=== PATIENT | female | born 1960 | race Caucasian/White ===

== ENCOUNTER 2018-05-13 14:34 | Emergency (ER) | payer MEDICAID ==
[~2018-05-13] VITALS: Ht 167.6 cm; Wt 81.6 kg
--- NOTE | 2018-05-13 14:34 | NUR ---
PT BIBA BLS TO ER BED 11
[2018-05-13 14:47] VITALS: BP 147/114
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
[2018-05-13] MEDS ORDERED: KETOROLAC 60 MG/2 ML VIAL IM ONE (15:05)
[2018-05-13] MEDS ORDERED: LORazepam 2 MG/ML VIAL IM ONE (15:05)
--- NOTE | 2018-05-13 15:29 | NUR ---
REPORTING INFORMATION: SHERIFF Jess ATKINSON [phone] CASE # [id number]
--- NOTE | 2018-05-13 15:36 | NUR ---
PATIENT TAKEN TO CT
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
--- NOTE | 2018-05-13 15:46 | NUR ---
PATIENT BACK FROM CT
--- NOTE | 2018-05-13 15:58 | NUR ---
PATIENT ASSISTED IN USING BED ROOT
[2018-05-13] MEDS ORDERED: fentaNYL 0.05 MG/ML VIAL IM ONE (16:20)
--- NOTE | 2018-05-13 16:28 | NUR ---
Patient appears to be resting comfortably in bed. Vital Signs within normal limits. Respirations even and unlabored.
[2018-05-13 17:00] VITALS: BP 141/91
--- NOTE | 2018-05-13 17:00 | NUR ---
Patient discharged with v/s stable. Written and verbal after care instructions given and explained. Patient alert, oriented and verbalized understanding of instructions. Ambulatory with steady gait. All questions addressed prior to discharge. ID band removed. Patient advised to follow up with PMD. Rx of MOTRIN AND TRAMADOL given. Patient educated on indication of medication including possible reaction and side effects. Opportunity to ask questions provided and answered.
== END 2018-05-13 17:00 | disposition home or self-care (01) ==
LOC: MED 14:34
DX: S16.1XXA Strain of muscle, fascia and tendon at neck level, initial encounter (principal); S00.81XA Abrasion of other part of head, initial encounter; Y04.2XXA Assault by strike against or bumped into by another person, initial encounter; Y93.89 Activity, other specified; Y92.89 Other specified places as the place of occurrence of the external cause; Y99.8 Other external cause status
CPT/HCPCS: 70450; 72125; 90471; 90715; 96372; 99284; J1885; J2060; J3010

== ENCOUNTER 2019-06-07 13:10 | Emergency (ER) | payer MEDICAID ==
[~2019-06-07] VITALS: Ht 165.1 cm; Wt 88.5 kg
[2019-06-07 13:59] VITALS: BP 136/107
--- NOTE | 2019-06-07 14:03 | NUR ---
PT TO LOBBY W/ SON, CALM, VSS.
--- NOTE | 2019-06-07 14:20 | NUR ---
APT C/O ANXIETY FOR 3 DAYS W/ CHEST PRESSURE, PT TAKES HYDROXYZINE 50MG BUT HAS NOT HAD FOR 3 DAYS, PT TOOK LATUDA 80MG TODAY. DENIES N/V/D; PATIENT STATES PAIN OF 0/10 AT THIS TIME; VSS; PATIENT POSITIONED FOR COMFORT; HOB ELEVATED; BEDRAILS UP X1; BED DOWN. ER MD MADE AWARE OF PT STATUS.
--- NOTE | 2019-06-07 15:29 | NUR ---
PT TO ER BED 7
[2019-06-07 16:10] VITALS: BP 131/100
--- NOTE | 2019-06-07 16:10 | NUR ---
Patient discharged with v/s stable. Written and verbal after care instructions given and explained. Patient alert, oriented and verbalized understanding of instructions. Ambulatory with steady gait. All questions addressed prior to discharge. ID band removed. Patient advised to follow up with PMD. Rx of Hydroxyzine Hydrochloride given. Patient educated on indication of medication including possible reaction and side effects. Opportunity to ask questions provided and answered.
== END 2019-06-07 16:10 | disposition home or self-care (01) ==
LOC: MED 13:10
DX: F41.9 Anxiety disorder, unspecified (principal); G47.00 Insomnia, unspecified; Z76.0 Encounter for issue of repeat prescription
CPT/HCPCS: 93005; 99284

== ENCOUNTER 2019-08-01 10:53 | Emergency (ER) | payer SELFPAY ==
[~2019-08-01] VITALS: Ht 165.1 cm; Wt 85.3 kg
[2019-08-01 10:55] VITALS: BP 171/116
--- NOTE | 2019-08-01 10:55 | NUR ---
PATIENT AMBULATED TO BED 8
[2019-08-01] MEDS ORDERED: LORazepam 1 MG TAB PO ONE (11:05)
[2019-08-01] MEDS ORDERED: ASPIRIN 325 MG TAB PO ONE (11:05)
--- NOTE | 2019-08-01 11:05 | NUR ---
denise farrar at bedside for ekg
--- NOTE | 2019-08-01 11:06 | NUR ---
dr hankins at bedside
--- NOTE | 2019-08-01 11:09 | NUR ---
xray at bedside
--- NOTE | 2019-08-01 11:15 | NUR ---
lab at bedside
--- NOTE | 2019-08-01 11:16 | NUR ---
C/O ANXIETY WITH CHEST PRESSURE, CONSTANT PAIN 9/10 TO MIDSTERNAL REGION RADIATING LUE X 4 DAYS. PATIENT STATES SHE HASN'T SEEN HER THERAPIST DUE TO CHANGE IN THERAPIST. BP 171/116. AA0X4. VSS. PT NON-DIAPHORETIC, DENIES SOB. BED IS DOWN, LOCKED, BED RAIL X 1. ON MONITOR. HX---HTN, ANXIETY, SCHIZOPHRENIA PARANOIA, GERD RX--?, ATARAX, LATUDA, OMEPRAZOLE
[2019-08-01 11:32] LABS: BASOPHILS # (AUTO) 0.1 K/uL (0.00-0.22); BASOPHILS % (AUTO) 0.9 % (0.0-2.0); EOSINOPHILS # (AUTO) 0.1 K/uL (0-0.4); EOSINOPHILS % (AUTO) 1.6 % (0.0-4.0); HEMATOCRIT 38.1 % (36-48); HEMOGLOBIN 12.3 g/dL (12.0-16.0); LYMPHOCYTES # (AUTO) 2.2 K/uL (2.5-16.5); LYMPHOCYTES % (AUTO) 28.3 % (20.5-51.1); MEAN CORPUSCULAR HEMOGLOBIN 27 pg (27-31); MEAN CORPUSCULAR HGB CONC 32 g/dL (33-37); MEAN CORPUSCULAR VOLUME 84.1 fL (80-94); MONOCYTES # (AUTO) 0.5 K/uL (0.8-1.0); MONOCYTES % (AUTO) 6.6 % (1.7-9.3); NEUTROPHILS # (AUTO) 4.9 K/uL (1.8-7.7); NEUTROPHILS % (AUTO) 62.6 % (42.2-75.2); PLATELET COUNT (AUTO) 337 K/uL (140-450); RED BLOOD CELL COUNT(AUTO) 4.53 MIL/uL (4.20-5.40); RED CELL DISTRIBUTION WIDTH 15.1 % (11.6-13.7); WHITE BLOOD COUNT (AUTO) 7.8 K/uL (4.8-10.8)
[2019-08-01 11:48] LABS: ANION GAP 15.6 (8-16); CARBON DIOXIDE 25.9 mmol/L (21-32); POTASSIUM 3.5 mmol/L (3.5-5.1)
[2019-08-01 11:49] LABS: CREATININE 1.1 mg/dL (0.6-1.3)
[2019-08-01 11:52] LABS: TOTAL BILIRUBIN 0.2 mg/dL (0.0-1.0)
[2019-08-01 11:53] LABS: ALBUMIN 3.5 g/dL (3.4-5.0)
[2019-08-01 12:13] LABS: CREATINE KINASE MB 0.7 ng/mL (0-3.6)
--- NOTE | 2019-08-01 12:56 | NUR ---
Patient discharged with v/s stable. Written and verbal after care instructions given and explained. Patient alert, oriented and verbalized understanding of instructions. Ambulatory with steady gait. All questions addressed prior to discharge. ID band removed. Patient advised to follow up with PMD. Rx of HYDROXYZINE, OMEPRAZOLE & LATUDA given. Patient educated on indication of medication including possible reaction and side effects. Opportunity to ask questions provided and answered.
[2019-08-01 12:57] VITALS: BP 156/100
== END 2019-08-01 12:56 | disposition home or self-care (01) ==
LOC: MED 10:53
DX: R07.89 Other chest pain (principal); F41.9 Anxiety disorder, unspecified; F20.9 Schizophrenia, unspecified; F17.210 Nicotine dependence, cigarettes, uncomplicated; K21.9 Gastro-esophageal reflux disease without esophagitis; Z76.0 Encounter for issue of repeat prescription; Z98.890 Other specified postprocedural states
CPT/HCPCS: 36415; 71045; 80053; 82550; 82553; 83690; 84484; 85025; 99284; Q0092; 93005

== ENCOUNTER 2020-01-01 08:32 | Emergency (ER) | payer MEDICAID ==
[~2020-01-01] VITALS: Ht 172.7 cm; Wt 86.2 kg
[2020-01-01 08:44] VITALS: BP 137/89
--- NOTE | 2020-01-01 08:49 | NUR ---
Note undone in EDM - 01/01/20 at 0921 by [facility] [place] 59 YO F C/O FLU-LIKE SYMPTOMS X 3 DAYS. +FEVER 100F, +THROAT PAIN 9/10, EAR PAIN L>R, RUNNY NOSE, PRODUCTIVE COUGH, CHEST PAIN 6/10 DESCRIBED TIGHTNESS. PT DENIES ANY N/V/D. PT TOOK IBUPROFEN 800MG AT 6:40AM. IN ER, VSS. NORMAL RATE REGULAR RHYTHM, CLEAR BREATH SOUNDS ON ALL QUADRANTS, ABDOMEN SOFT AND NON-TENDER. PT POSITIONED COMFORTABLY IN BED. ER MD MADE AWARE OF PT STATUS. PMH: HTN, SCHIZOPHRENIA MEDS: HYDROXYZINE, LATUDA NKA NO FLU SHOT
[2020-01-01 09:14] VITALS: BP 137/89
--- NOTE | 2020-01-01 09:14 | NUR ---
Patient discharged with v/s stable. Written and verbal after care instructions given and explained. Patient alert, oriented and verbalized understanding of instructions. Ambulatory with steady gait. All questions addressed prior to discharge. ID band removed. Patient advised to follow up with PMD. Rx of TYLENOL, TAMIFLU, SUDAFED given. Patient educated on indication of medication including possible reaction and side effects. Opportunity to ask questions provided and answered.
--- NOTE | 2020-01-01 09:14 | NUR ---
Note kikoone in EDM - 01/01/20 at 0921 by [facility] [place] Patient discharged with v/s stable. Written and verbal after care instructions given and explained. Patient alert, oriented and verbalized understanding of instructions. Ambulatory with crutches. All questions addressed prior to discharge. ID band removed. Patient advised to follow up with PMD. Rx of NORCO given. Patient educated on indication of medication including possible reaction and side effects. Opportunity to ask questions provided and answered.
== END 2020-01-01 09:14 | disposition home or self-care (01) ==
LOC: MED 08:32
DX: R05 Cough (principal); R50.9 Fever, unspecified; R09.81 Nasal congestion; J02.9 Acute pharyngitis, unspecified; K21.9 Gastro-esophageal reflux disease without esophagitis; I10 Essential (primary) hypertension; F20.9 Schizophrenia, unspecified
CPT/HCPCS: 99283

== ENCOUNTER 2020-09-11 14:30 | Emergency (ER) | payer MEDICAID ==
[~2020-09-11] VITALS: Ht 165.1 cm; Wt 73.2 kg
[2020-09-11 14:40] VITALS: BP 153/108
--- NOTE | 2020-09-11 14:46 | NUR ---
BIB SELF FOR MED CLEARANCE. C/O FEVER ON & OFF FRI, SAT LAST WEEK, COUGH ONLY IN THE MORNING S/P ALLERGY, RASH S/P ALLERGRY ONLY ON SAT 09/09/20. TEMP 99.4, P86, R 20, O2 SAT 95%,BP 153/108 AT THIS TIME. MED HX: HTN
--- NOTE | 2020-09-11 14:46 | NUR ---
Note undone in EDM - 09/11/20 at 1457 by [email or web address] BIB SELF FOR MED CLEARANCE FOR RETURNING TO WORK. C/O FEVER ON & OFF FRI, SAT LAST WEEK, COUGH OMLY IN THE MORNING S/P ALLERGY, RASH S/P ALLERGRY ONLY ON SAT 09/09/20. TEMP 99.4, P86, R 20, O2 SAT 95%,BP 153/108 AT THIS TIME. MED HX: HTN
--- NOTE | 2020-09-11 14:55 | NUR ---
COVID CED SWAB SENT TO LAB.
[2020-09-11 15:49] VITALS: BP 153/108
--- NOTE | 2020-09-11 15:49 | NUR ---
Patient discharged with v/s stable. Written and verbal after care instructions given and explained. Patient alert, oriented and verbalized understanding of instructions. Ambulatory with steady gait. All questions addressed prior to discharge. ID band removed. Patient advised to follow up with PMD. Rx of Hydrocortisone 1% topical cream and Benadryl 25mg given. Patient educated on indication of medication including possible reaction and side effects. Opportunity to ask questions provided and answered.
== END 2020-09-11 15:49 | disposition home or self-care (01) ==
LOC: MED 14:30
DX: R50.9 Fever, unspecified (principal); R05 Cough; K21.9 Gastro-esophageal reflux disease without esophagitis; I10 Essential (primary) hypertension; Z02.89 Encounter for other administrative examinations
CPT/HCPCS: 99283

== ENCOUNTER 2020-10-26 01:36 | Emergency (ER) | payer MEDICAID ==
[~2020-10-26] VITALS: Ht 165.1 cm; Wt 72.6 kg
[2020-10-26 01:45] VITALS: BP 153/90
--- NOTE | 2020-10-26 01:45 | NUR ---
TO TENT # 01 AMBULATORY
--- NOTE | 2020-10-26 02:00 | NUR ---
SEEN AND EXAMINED BY RAHEEM,WITH ORDERS,CARRIED OUT.
[2020-10-26] MEDS ORDERED: KETOROLAC 60 MG/2 ML VIAL IM ONE (02:05)
--- NOTE | 2020-10-26 02:05 | NUR ---
MEDICATED PER ERMDS ORDER,PATIENT TOLERATED WELL.
--- NOTE | 2020-10-26 02:10 | NUR ---
SWAB DONE AND SENT TO LAB
[2020-10-26 02:30] VITALS: BP 153/90
== END 2020-10-26 02:30 | disposition home or self-care (01) ==
LOC: MED 01:36
DX: R50.9 Fever, unspecified (principal); Z20.828 Contact with and (suspected) exposure to other viral communicable diseases; K21.9 Gastro-esophageal reflux disease without esophagitis; I10 Essential (primary) hypertension; Z98.890 Other specified postprocedural states
CPT/HCPCS: 96372; 99283; J1885; U0003

== ENCOUNTER 2021-02-16 11:45 | Inpatient (IN) | payer MEDICAID, SELFPAY ==
[~2021-02-16] VITALS: Ht 165.1 cm; Wt 63.0 kg
[~2021-02-16 11:45] MED LIST: GABA300C PO; HYDR25CA1 PO; OMEP20TC10 PO; TRAZ-343 PO
--- NOTE | 2021-02-16 11:46 | NUR ---
TO ED 11 VIA EMS GURNEY.
[2021-02-16 11:51] VITALS: BP 172/94
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
--- NOTE | 2021-02-16 11:57 | NUR ---
DR SMART AT BEDSIDE
[2021-02-16] MEDS ORDERED: fentaNYL citrate 0.05 MG/ML VIAL IVP ONE (12:05)
--- NOTE | 2021-02-16 12:12 | NUR ---
LAB AT BEDSIDE FOR BLOOD DRASW AND EMT AT BEDSIDE FOR EKG
[2021-02-16 12:22] LABS: BASOPHILS # (AUTO) 0.1 K/uL (0.00-0.22); BASOPHILS % (AUTO) 0.7 % (0.0-2.0); EOSINOPHILS # (AUTO) 0.1 K/uL (0-0.4); EOSINOPHILS % (AUTO) 0.9 % (0.0-4.0); HEMATOCRIT 37.8 % (36-48); HEMOGLOBIN 12.5 g/dL (12.0-16.0); LYMPHOCYTES % (AUTO) 11.4 % (20.5-51.1); MEAN CORPUSCULAR HEMOGLOBIN 28 pg (27-31); MEAN CORPUSCULAR HGB CONC 33 g/dL (33-37); MEAN CORPUSCULAR VOLUME 85.2 fL (80-94); MONOCYTES # (AUTO) 0.4 K/uL (0.8-1.0); MONOCYTES % (AUTO) 4.8 % (1.7-9.3); NEUTROPHILS # (AUTO) 7.2 K/uL (1.8-7.7); NEUTROPHILS % (AUTO) 82.2 % (42.2-75.2); PLATELET COUNT (AUTO) 280 K/uL (140-450); RED BLOOD CELL COUNT(AUTO) 4.43 MIL/uL (4.20-5.40); RED CELL DISTRIBUTION WIDTH 15.1 % (11.6-13.7); WHITE BLOOD COUNT (AUTO) 8.7 K/uL (4.8-10.8)
--- NOTE | 2021-02-16 12:22 | NUR ---
PT TAKEN TO CT VIA CESAR
--- NOTE | 2021-02-16 12:34 | NUR ---
PT BACK FROM CT AND CONNECTED TO MONITOR
[2021-02-16 12:36] LABS: ALBUMIN 3.9 g/dL (3.4-5.0); ANION GAP 9.8 (8-16); CARBON DIOXIDE 27.1 mmol/L (21-32); CREATININE 0.8 mg/dL (0.6-1.3); POTASSIUM 3.9 mmol/L (3.5-5.1); TOTAL BILIRUBIN 0.5 mg/dL (0.0-1.0)
--- NOTE | 2021-02-16 12:41 | NUR ---
PT VOMITED 300ML- YELLOW NO BLOOD. PT GIVEN NEW EMESIS BAG AND CLEAN BLANKET. PT C/O 10/ PAIN STILL AND REQUESTING MORE PAIN MEDS. DR SMART MADE AWARE
[2021-02-16] MEDS ORDERED: MORPHINE SULFATE 4 MG/ML SYR IVP ONE (12:45)
[2021-02-16] MEDS ORDERED: ONDANSETRON 4 MG/2 ML VIAL IVP ONE (12:45)
[2021-02-16 12:46] LABS: PROTHROMBIN TIME 10.1 secs (10.8-13.4)
[2021-02-16] MEDS ORDERED: ONDANSETRON 4 MG/2 ML VIAL IM/IVP PRN (15:05)
[2021-02-16] MEDS ORDERED: MORPHINE SULFATE 2 MG/ML SYR IVP PRN (15:05)
[2021-02-16] MEDS ORDERED: KETOROLAC 15 MG/ML VIAL IVP PRN (15:05)
[2021-02-16] MEDS ORDERED: ACETAMINOPHEN 325 MG TAB PO PRN (15:05)
[2021-02-16] MEDS ORDERED: POTASSIUM CHLORIDE 10 MEQ TABER PO PRN (15:05)
[2021-02-16] MEDS ORDERED: DOCUSATE SODIUM 100 MG GELCAP PO PRN (15:05)
[2021-02-16] MEDS ORDERED: SODIUM PHOS / POTASSIUM PHOS 1 PKT PDR PO PRN (15:05)
[2021-02-16] MEDS ORDERED: MAGNESIUM OXIDE 400 MG TAB PO PRN (15:05)
[2021-02-16] MEDS ORDERED: hydrALAZINE 10 MG TAB PO PRN (15:20)
[2021-02-16] MEDS ORDERED: traZODone 50 MG TAB PO PRN (15:20)
--- NOTE | 2021-02-16 15:20 | NUR ---
Patient will be admitted to care of DR CHAPMAN. Admited to TELE. Will go to room 121-B. Belongings list completed. Report to ABNER SABA.
[2021-02-16 15:31] LABS: MAGNESIUM 1.9 mg/dL (1.8-2.4); PHOSPHORUS 3.5 mg/dL (2.5-4.9)
--- NOTE | 2021-02-16 15:45 | NUR ---
REC'D PT FROM E.[facility]. NIKI, RA. LUNGS CLEAR, ABD SOFT, NON-NON TENDER L.HAND 22G SL, A/Ox4 MALAYSIAN SPEAKER, C/O MILD HEADACHE. ICE PACK PROVIDE FOR PAIN. WILL CONTINUE TO MONITOR, NO SIGN OF EDEMA. SKIN INTACT.
--- NOTE | 2021-02-16 15:47 | NUR ---
PT TAKEN TO TELEMETRY 121B BY CESAR. REPORT GIVEN TO ABNER SABA. TRANSFER OF CARE AT THIS TIME
[2021-02-16] MEDS: NACL 0.9% 1,000 ML IV SCH (16:00)
--- NOTE | 2021-02-16 16:50 | NUR ---
COLLECTED MRSA SPECIMEN, L/R NARES ,PT TOLERATED PROCEDURE WELL. SPECIMEN SENT TO LAB FOR PROCESSING
--- NOTE | 2021-02-16 18:20 | NUR ---
PT GIVEN ICE BAGS FOR HEADACHE, PLACED ON BACK ON NECK.
--- NOTE | 2021-02-16 19:21 | NUR ---
ENDORSED PT FOR CONTINUITY OF CARE. PT STABLE RA CALL LIGHT WITHIN REACH. NO SIGN OF DISTRESS
--- NOTE | 2021-02-16 19:22 | NUR ---
RECEIVED TRANSFER OF CARE REPORT FROM AM RN FOR CONTINUATION OF CARE. PT FOUND ASLEEP RESTING IN BED. PT HAS VISIBLE EQUAL RISE AND FALL UPON RESPIRATION. PT HAS NO SIGNS OF DISTRESS. BED LOCKED IN LOWEST POSITION WITH 2 SIDE RAILS UP FOR SAFETY AND CALL LIGHT WITHIN REACH.
[2021-02-16 20:00] VITALS: BP 161/89
[2021-02-16] MEDS: APAP/BUTAL/CAFF 325/50/40 MG 1 TAB PO PRN (20:03)
--- NOTE | 2021-02-16 20:06 | NUR ---
C/O HEADACHE, COLD PACK GIVE, AND FIORICET PO GIVEN PRN HEADACHE ORDERED, WILL CONTINUE TO MONITOR, CALL LIGHT WITHIN REACH.
--- NOTE | 2021-02-16 21:37 | NUR ---
PT FOUND ASLEEP RESTING IN BED. PT HAS VISIBLE EQUAL RISE AND FALL UPON RESPIRATION. NO DISTRESS IS NOTED. BED IS LOCKED IN LOWEST POSITION WITH 2 SIDE RAILS UP FOR SAFETY AND CALL LIGHT WITHIN REACH. WILL CONTINUE TO MONITOR.
--- NOTE | 2021-02-16 22:31 | NUR ---
22 GAUGE IV INSERTED IN LEFT HAND.
[2021-02-17] VITALS: BP 152/98
[2021-02-17 01:03] LABS: BARBITURATE, URINE POSITIVE ng/ml (NEG <=200); BENZODIAZEPINE, URINE NEGATIVE ng/mL (NEG <=200); CANNABINOID, URINE NEGATIVE ng/mL (NEG <=50); COCAINE, URINE NEGATIVE ng/mL (NEG <=300); OPIATE, URINE POSITIVE ng/mL (NEG <=2000); PHENCYCLIDINE SCREEN,URINE NEGATIVE ng/mL (NEG <=25)
--- NOTE | 2021-02-17 01:48 | NUR ---
PT FOUND ASLEEP RESTING IN BED. PT HAS VISIBLE EQUAL RISE AND FALL UPON RESPIRATION. NO DISTRESS NOTED. BED LOCKED IN LOWEST POSITION WITH 2 SIDE RAILS UP FOR SAFETY AND CALL LIGHT WITHIN REACH. WILL CONTINUE TO MONITOR.
--- NOTE | 2021-02-17 03:57 | NUR ---
PT FOUND AWAKE RESTING IN BED. PT STATES NO PAIN, NO DISTRESS, AND NO MEDICAL COMPLAINTS. PT HAS VISIBLE EQUAL RISE AND FALL UPON RESPIRATION. BED LOCKED IN LOWEST POSITION WITH 2 SIDE RAILS UP FOR SAFETY AND CALL LIGHT WITHIN REACH. WILL CONTINUE TO MONITOR.
[2021-02-17 04:00] VITALS: BP 119/74
[2021-02-17 06:08] LABS: ANION GAP 9.8 (8-16); CREATININE 0.9 mg/dL (0.6-1.3); POTASSIUM 3.8 mmol/L (3.5-5.1)
[2021-02-17 06:20] LABS: BASOPHILS % (AUTO) 0.3 % (0.0-2.0); EOSINOPHILS # (AUTO) 0.2 K/uL (0-0.4); EOSINOPHILS % (AUTO) 2.3 % (0.0-4.0); HEMATOCRIT 36.7 % (36-48); HEMOGLOBIN 12.1 g/dL (12.0-16.0); LYMPHOCYTES # (AUTO) 2.4 K/uL (2.5-16.5); LYMPHOCYTES % (AUTO) 30.9 % (20.5-51.1); MEAN CORPUSCULAR HEMOGLOBIN 28 pg (27-31); MEAN CORPUSCULAR HGB CONC 33 g/dL (33-37); MEAN CORPUSCULAR VOLUME 84.7 fL (80-94); MONOCYTES # (AUTO) 0.6 K/uL (0.8-1.0); MONOCYTES % (AUTO) 8.2 % (1.7-9.3); NEUTROPHILS # (AUTO) 4.6 K/uL (1.8-7.7); NEUTROPHILS % (AUTO) 58.3 % (42.2-75.2); PLATELET COUNT (AUTO) 258 K/uL (140-450); RED BLOOD CELL COUNT(AUTO) 4.33 MIL/uL (4.20-5.40); RED CELL DISTRIBUTION WIDTH 15.3 % (11.6-13.7); WHITE BLOOD COUNT (AUTO) 7.8 K/uL (4.8-10.8)
--- NOTE | 2021-02-17 07:17 | NUR ---
TRANSFER OF CARE REPORT PROVIDED TO NISA LEVINE.
--- NOTE | 2021-02-17 07:20 | NUR ---
RECEIVED PATIENT FROM NIGHT NURSE. PATIENT IN BED AWAKE AND ALERT. RESP EVEN AND UNLABORED ON ROOM AIR. DENIED OF PAIN AT THIS TIME. LH 22G INFUSING NS @ 40ML/HR. PLAN OF CARE DISCUSSED. PATIENT VERBALIZED UNDERSTANDING. CALL LIGHT WITHIN REACH. WILL CONTINUE TO MONITOR.
[2021-02-17 08:00] VITALS: BP 144/85
[2021-02-17] MEDS: ECOTRIN 81 MG TABEC PO SCH (08:52)
[2021-02-17] MEDS: GABAPENTIN 300 MG CAP PO SCH (08:52)
[2021-02-17] MEDS: FAMOTIDINE 20 MG TAB PO SCH (08:53)
[2021-02-17] MEDS: hydroCHLOROthiazide 25 MG TAB PO SCH (08:53)
[2021-02-17] MEDS: lisinopriL 10 MG TAB PO SCH (08:53)
[2021-02-17] MEDS ORDERED: carvediloL 3.125 MG TAB PO SCH (09:00)
[2021-02-17] MEDS ORDERED: lisinopriL 10 MG TAB PO SCH (09:00)
--- NOTE | 2021-02-17 09:02 | NUR ---
PATIENT IN BED EATING BREAKFAST. RESP EVEN AND UNLABORED ON ROOM AIR. DENIED OF PAIN AT THIS TIME. MORNING ROUTINE MEDICATIONS GIVEN. PATIENT TOLERATED WELL. DENIED OF ANY MIGRAINE AT THIS TIME AND WILL CALL NURSING NEEDED. RH 22G INFUSING WELL. PATIENT AMBULATORY WITH STEADY GAIT. ABLE TO MAKE NEEDS KNOWN. CALL LIGHT WITHIN REACH. WILL CONTINUE TO MONITOR.
--- NOTE | 2021-02-17 09:35 | NUR ---
PATIENT HAS BEEN SCREENED AND CATEGORIZED LOW NUTRITION RISK. PATIENT WILL BE SEEN WITHIN 7 DAYS OF ADMISSION. 02/23/[address]
[2021-02-17 12:00] VITALS: BP 119/79
--- NOTE | 2021-02-17 12:25 | NUR ---
PATIENT SITTING BY BEDSIDE EATING LUNCH. RESP EVEN AND UNLABORED ON ROOM AIR. DENIED OF PAIN AT THIS TIME. PATIENT IN GOOD SPIRIT. ABLE TO MAKE NEEDS KNOWN. CALL LIGHT WITHIN REACH. WILL CONTINUE TO MONITOR.
--- NOTE | 2021-02-17 14:15 | NUR ---
PATIENT IN BED SLEEPING, CHEST NOTED RISING. NO NOTED DISTRESS AT THIS TIME. CALL LIGHT WITHIN REACH. WILL CONTINUE TO MONITOR.
--- NOTE | 2021-02-17 15:47 | NUR ---
RECEIVED REPORT FROM NURSE VALLADARES FOR CONTINUITY OF CARE. PT HAS LH22G INFUSING NS AT 40 ML/H.
--- NOTE | 2021-02-17 15:47 | NUR ---
ENDORSED PATIENT TO ABNER VIZCARRA FOR CONTINUITY OF CARE. PATIENT IN STABLE CONDITION.
[2021-02-17] MEDS: NACL 0.9% 1,000 ML IV SCH (15:50)
--- NOTE | 2021-02-17 15:52 | NUR ---
ADMINISTERED SCHEDULED FLUIDS, MEDICATION EDUCATION PROVIDED. PT TOLERATED WELL. PT IS STABLE, NO SIGNS OF DISTRESS NOTED. CALL LIGHT WITHIN REACH, WILL CONTINUE TO MONITOR.
[2021-02-17 16:00] VITALS: BP 124/89
--- NOTE | 2021-02-17 17:56 | NUR ---
ROUNDING ON PT, PT ASLEEP BUT WOKE UP WHEN RN ENTERED ROOM. ALL NEEDS MET, PT IS STABLE, WILL CONTINUE TO MONITOR
--- NOTE | 2021-02-17 19:10 | NUR ---
ENDORSE PT TO NIGHT NURSE FOR CONTINUITY OF CARE
--- NOTE | 2021-02-17 19:11 | NUR ---
RECEIVED BEDSIDE ENDORSEMENT FROM AM SHIFT RN. PT IS ALERT, AWAKE ORIENTED X 4, ON ROOM AIR, DENIES PAIN, KEPT COMFORTABLE, SAFETY MEASURES IN PLACE, IVF INFUSING, PLAN OF CARE DISCUSSED, CALL LIGHT WITHIN REACH.
[2021-02-17 20:00] VITALS: BP 121/76
[2021-02-17] MEDS: carvediloL 3.125 MG TAB PO SCH (20:32)
--- NOTE | 2021-02-17 20:35 | NUR ---
PT IS AWAKE AND WATCHING TV, DUE MEDS GIVEN ORDERED, TOLERATED WELL, KEPT COMFORTABLE, CALL LIGHT WITHIN REACH.
--- NOTE | 2021-02-17 22:45 | NUR ---
PT IS RESTING, RESPIRATION EVEN AND UNLABORED, CALL LIGHT WITHIN REACH.
[2021-02-18] VITALS: BP 147/79
--- NOTE | 2021-02-18 00:05 | NUR ---
V/S TAKEN AND RECORDED.
--- NOTE | 2021-02-18 02:08 | NUR ---
PT ASLEEP, RESPIRATION EVEN AND UNLABORED, CHEST RISE NOTED. CALL LIGHT WITHIN REACH.
[2021-02-18 04:00] VITALS: BP 118/76
[2021-02-18 05:57] LABS: BASOPHILS # (AUTO) 0.1 K/uL (0.00-0.22); BASOPHILS % (AUTO) 0.7 % (0.0-2.0); EOSINOPHILS # (AUTO) 0.2 K/uL (0-0.4); EOSINOPHILS % (AUTO) 1.9 % (0.0-4.0); HEMATOCRIT 36.5 % (36-48); HEMOGLOBIN 12.2 g/dL (12.0-16.0); LYMPHOCYTES # (AUTO) 2.3 K/uL (2.5-16.5); LYMPHOCYTES % (AUTO) 28.1 % (20.5-51.1); MEAN CORPUSCULAR HEMOGLOBIN 29 pg (27-31); MEAN CORPUSCULAR HGB CONC 33 g/dL (33-37); MEAN CORPUSCULAR VOLUME 85.8 fL (80-94); MONOCYTES # (AUTO) 0.7 K/uL (0.8-1.0); MONOCYTES % (AUTO) 8.6 % (1.7-9.3); NEUTROPHILS # (AUTO) 4.9 K/uL (1.8-7.7); NEUTROPHILS % (AUTO) 60.7 % (42.2-75.2); PLATELET COUNT (AUTO) 279 K/uL (140-450); RED BLOOD CELL COUNT(AUTO) 4.26 MIL/uL (4.20-5.40); RED CELL DISTRIBUTION WIDTH 15.1 % (11.6-13.7); WHITE BLOOD COUNT (AUTO) 8.1 K/uL (4.8-10.8)
[2021-02-18 06:00] LABS: ANION GAP 10.9 (8-16); CARBON DIOXIDE 27.1 mmol/L (21-32); CREATININE 0.9 mg/dL (0.6-1.3)
--- NOTE | 2021-02-18 06:42 | NUR ---
V/S TAKEN, FALGUNI PAIN, CALL LIGHT WITHIN REACH. Addendum: 02/18/21 at 0644 by Kameron Araiza RN V/S TAKEN AT 0400 NOT 0658
--- NOTE | 2021-02-18 06:44 | NUR ---
NO ACUTE CHANGES OVERNIGHT, NO DISTRESS, NO SOB, ALL NEEDS ATTENDED, KEPT COMFORTABLE, CALL LIGHT WITHIN REACH.
--- NOTE | 2021-02-18 07:24 | NUR ---
PT IS STABLE, BEDSIDE ENDORSEMENT GIVEN TO AM SHIFT RN FOR CONTINUITY OF CARE.
--- NOTE | 2021-02-18 07:28 | NUR ---
RECEIVED REPORT FROM NIGHT NURSE PATIENT IS AAOX4 ON ROOM AIR, AMBULATORY,LATEST BOWEL MOVEMENT TODAY,SKIN INTACT, IV INTACT ON LEFT HAND, SAFETY MEASURES IN PLACE AND CALL LIGHT WITHIN REACH. WILL CONTINUE TO MONITOR.
[2021-02-18] MEDS: APAP/BUTAL/CAFF 325/50/40 MG 1 TAB PO PRN (07:53)
--- NOTE | 2021-02-18 07:53 | NUR ---
PATIENT COMPLAIN HEADACHE 02/17 CHECK VITAL SIGNS BP 129/74 AR 59 . GAVE PAIN MEDICATION FIORICET 325/50/40 MG. PT TOLERATED WELL.
[2021-02-18 08:00] VITALS: BP 161/89
[2021-02-18] MEDS: ECOTRIN 81 MG TABEC PO SCH (08:28)
[2021-02-18] MEDS: GABAPENTIN 300 MG CAP PO SCH (08:29)
[2021-02-18] MEDS: carvediloL 3.125 MG TAB PO SCH (08:29)
[2021-02-18] MEDS: lisinopriL 10 MG TAB PO SCH (08:29)
[2021-02-18] MEDS: hydroCHLOROthiazide 25 MG TAB PO SCH (08:30)
[2021-02-18] MEDS: FAMOTIDINE 20 MG TAB PO SCH (08:30)
--- NOTE | 2021-02-18 08:32 | NUR ---
MEDICATION DUE GIVEN CHECK VITAL SIGN BP 161/89 WA 59 PT IS STABLE AND NO DISTRESS NOTED.
[2021-02-18] MEDS ORDERED: carvediloL 3.125 MG TAB PO SCH (09:00)
--- NOTE | 2021-02-18 10:37 | NUR ---
PATIENT FEELS BETTER AND DENIES ANY HEADACHE
[2021-02-18 12:00] VITALS: BP 125/68
--- NOTE | 2021-02-18 12:13 | NUR ---
MADE ROUND, PT RESTING AND CHECK VITAL SIGNS BP 125/68 WV 57 NO DISTRESS NOTED AND DENIES PAIN.
[2021-02-18] MEDS ORDERED: LISI20TA29 PO ×2 (15:00→15:48)
[2021-02-18] MEDS ORDERED: ASPI-1856 PO ×2 (15:00→15:48)
[2021-02-18] MEDS ORDERED: HYDR25TA32 PO ×2 (15:00→15:48)
[2021-02-18] MEDS ORDERED: CARV3.122 PO ×2 (15:00→15:48)
[2021-02-18] MEDS: NACL 0.9% 1,000 ML IV SCH (15:05)
--- NOTE | 2021-02-18 16:25 | NUR ---
DISCHARGED INSTRUCTIONS GIVEN TO PATIENT ON THE BEDSIDE. INSTRUCTED TO CONTINUE MEDICATIONS AND TO FOLLOW UP WITH PCP IN 3-5 DAYS AND TO FOLLOW UP WITH ACUTE SPECIALIST. INSTRUCTED PATIENT TO SEEK MEDICAL HELP INCASE OF EMERGENCIES. INSTRUCTED TO BLOOD PRESSURE AND TO TAKE SOME REST TO RELIEVE STRESS AND HEADACHE. REMOVED TELEMONITOR AND RETURNED TO SCRAP CARRIER, IV COMPLETE AND NO BLEEDING, REMOVED ID BANDS, CHANGED PT TO HER OWN CLOTHES, PT TOOK ALL HER BELONGINGS AND ESCORTED PATIENT TO FRONT LOBBY VIA WHEELCHAIR.PT IS DISCHARGE TO HOME PT IS STABLE AND NO DISTRESS NOTED AND DENIES PAIN.
== END 2021-02-18 16:25 | disposition home or self-care (01) | DRG 199 ==
LOC: MED 11:45 → MTU 14:58
PROVIDERS: ADMIT Hospitalist; ATTEND Hospitalist
DX: I16.0 Hypertensive urgency (principal); E87.1 Hypo-osmolality and hyponatremia; K21.9 Gastro-esophageal reflux disease without esophagitis; I10 Essential (primary) hypertension; R51.9 Headache, unspecified; I35.0 Nonrheumatic aortic (valve) stenosis; M47.812 Spondylosis without myelopathy or radiculopathy, cervical region; Z86.73 Personal history of transient ischemic attack (TIA), and cerebral infarction without residual deficits; Z98.51 Tubal ligation status; Z87.891 Personal history of nicotine dependence
CPT/HCPCS: 36415; 70450; 72125; 80048; 80053; 80305; 83735; 84100; 84484; 85025; 85610; 85730; 87081; 93005; 96374; 96375; 99285; J2270; J2405; J3010; J7030

== ENCOUNTER 2021-05-29 14:30 | Emergency (ER) | payer MEDICAID, SELFPAY ==
[~2021-05-29] VITALS: Ht 165.1 cm; Wt 77.6 kg
[~2021-05-29 14:30] MED LIST changes: +ASPI-1856 PO; +CARV3.122 PO; -GABA300C PO; -HYDR25CA1 PO; +HYDR25TA32 PO; +LISI20TA29 PO; -TRAZ-343 PO
[2021-05-29 14:31] VITALS: BP 128/92
--- NOTE | 2021-05-29 15:30 | NUR ---
NO NURSING INTERVENTIONS PROVIDED. PT SEEN AND D/C BY DR REDDY
[2021-05-29 15:35] VITALS: BP 128/92
--- NOTE | 2021-05-29 15:47 | NUR ---
Patient discharged with v/s stable. Written and verbal after care instructions given and explained. Patient verbalized understanding. Ambulatory with steady gait. All questions addressed prior to discharge. Advised to follow up with PMD. PT GIVEN WORK CLEARANCE NOTE TO RETURN TO WORK TOMORROW.
== END 2021-05-29 15:47 | disposition home or self-care (01) ==
LOC: MED 14:30
DX: Z02.89 Encounter for other administrative examinations (principal); K21.9 Gastro-esophageal reflux disease without esophagitis; I10 Essential (primary) hypertension; Z79.899 Other long term (current) drug therapy; V89.2XXA Person injured in unspecified motor-vehicle accident, traffic, initial encounter; Y93.89 Activity, other specified; Y92.89 Other specified places as the place of occurrence of the external cause; Y99.8 Other external cause status
CPT/HCPCS: 99281

== ENCOUNTER 2021-11-17 14:11 | Emergency (ER) | payer MEDICAID ==
[~2021-11-17] VITALS: Ht 165.1 cm; Wt 81.3 kg
[2021-11-17 14:27] VITALS: BP 160/80
--- NOTE | 2021-11-17 14:37 | NUR ---
IRMA. HANDED ON URINE CUP.
[2021-11-17] MEDS ORDERED: ONDANSETRON 4 MG ODT PO ONE (15:35)
[2021-11-17] MEDS ORDERED: HYDROcodone/APAP 5/325 MG 1 TAB TAB PO ONE (15:35)
--- NOTE | 2021-11-17 15:39 | NUR ---
PT AMBULATED TO CHAIR B
[2021-11-17 16:47] LABS: APPEARANCE,URINE CLEAR (CLEAR); BILIRUBIN,URINE NEGATIVE (NEGATIVE); BLOOD, URINE NEGATIVE (NEGATIVE); COLOR,URINE YELLOW (YELLOW); LEUKOCYTE ESTERASE ,URINE NEGATIVE (NEGATIVE); NITRITE, URINE NEGATIVE (NEGATIVE); UGLUCOSE NEGATIVE (NEGATIVE)
--- NOTE | 2021-11-17 16:51 | NUR ---
CT CONSENT SIGNED AND PLACED INTO PATIENT CHART
[2021-11-17 16:56] LABS: BASOPHILS # (AUTO) 0.1 K/uL (0.00-0.22); BASOPHILS % (AUTO) 1.1 % (0.0-2.0); EOSINOPHILS # (AUTO) 0.5 K/uL (0-0.4); EOSINOPHILS % (AUTO) 5.7 % (0.0-4.0); HEMATOCRIT 37.4 % (36-48); HEMOGLOBIN 12.5 g/dL (12.0-16.0); LYMPHOCYTES # (AUTO) 2.3 K/uL (2.5-16.5); LYMPHOCYTES % (AUTO) 28.5 % (20.5-51.1); MEAN CORPUSCULAR HEMOGLOBIN 30 pg (27-31); MEAN CORPUSCULAR HGB CONC 33 g/dL (33-37); MEAN CORPUSCULAR VOLUME 90.4 fL (80-94); MONOCYTES # (AUTO) 0.5 K/uL (0.8-1.0); MONOCYTES % (AUTO) 5.7 % (1.7-9.3); NEUTROPHILS # (AUTO) 4.9 K/uL (1.8-7.7); PLATELET COUNT (AUTO) 302 K/uL (140-450); RED BLOOD CELL COUNT(AUTO) 4.14 MIL/uL (4.20-5.40); RED CELL DISTRIBUTION WIDTH 13.3 % (11.6-13.7); WHITE BLOOD COUNT (AUTO) 8.2 K/uL (4.8-10.8)
[2021-11-17] MEDS ORDERED: ONDANSETRON 4 MG ODT ONE (16:57)
[2021-11-17] MEDS ORDERED: HYDROcodone/APAP 5/325 MG 1 TAB TAB ONE (16:58)
[2021-11-17 17:13] LABS: ALBUMIN 3.7 g/dL (3.4-5.0); ANION GAP 12.1 (8-16); CARBON DIOXIDE 26.6 mmol/L (21-32); POTASSIUM 3.7 mmol/L (3.5-5.1); TOTAL BILIRUBIN 0.3 mg/dL (0.0-1.0)
[2021-11-17 17:16] LABS: PROTHROMBIN TIME 9.4 secs (10.8-13.4)
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
--- NOTE | 2021-11-17 17:44 | NUR ---
PT TAKEN TO CT VIA W/C
--- NOTE | 2021-11-17 18:20 | NUR ---
Patient appears to be resting comfortably in bed. Vital Signs within normal limits. Respirations even and unlabored. PT CURRENTLY TALKING TO NEPHEW ON THE PHONE
[2021-11-17] MEDS ORDERED: HYDR25SU91 RC (18:33)
[2021-11-17] MEDS ORDERED: ACET-10509 PO (18:33)
--- NOTE | 2021-11-17 19:14 | NUR ---
Patient discharged with v/s stable. Written and verbal after care instructions given and explained. Patient alert, oriented and verbalized understanding of instructions. Ambulatory with steady gait. All questions addressed prior to discharge. ID band removed. Patient advised to follow up with PMD. Rx of TYLENOL AND HYDROCORTISONE ACETATE given. Patient educated on indication of medication including possible reaction and side effects. Opportunity to ask questions provided and answered.
[2021-11-17 19:15] VITALS: BP 173/97
== END 2021-11-17 19:14 | disposition home or self-care (01) ==
LOC: MED 14:11
DX: K62.5 Hemorrhage of anus and rectum (principal); R03.0 Elevated blood-pressure reading, without diagnosis of hypertension; K21.9 Gastro-esophageal reflux disease without esophagitis; I10 Essential (primary) hypertension; Z88.8 Allergy status to other drugs, medicaments and biological substances
CPT/HCPCS: 36415; 74177; 80053; 81003; 81025; 83690; 85025; 85610; 85730; 99285; Q0162; Q9967

== ENCOUNTER 2022-01-02 20:40 | Emergency (ER) | payer MEDICAID ==
[~2022-01-02] VITALS: Ht 165.1 cm; Wt 81.6 kg
[~2022-01-02 20:40] MED LIST changes: +ACET-10509 PO; +HYDR25SU91 RC
[2022-01-02 21:11] VITALS: BP 138/101
--- NOTE | 2022-01-02 21:17 | NUR ---
AMBULATED TO BED 8 FROM TRIAGE
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
--- NOTE | 2022-01-02 21:50 | NUR ---
PT COMPLAINED WE WERE TAKING TO LONG. STATES SHE DIDNT WANT TO BE HERE ANYMOREA
[2022-01-02 21:54] LABS: BASOPHILS # (AUTO) 0.1 K/uL (0.00-0.22); BASOPHILS % (AUTO) 0.6 % (0.0-2.0); EOSINOPHILS # (AUTO) 0.6 K/uL (0-0.4); EOSINOPHILS % (AUTO) 7.2 % (0.0-4.0); HEMATOCRIT 32.7 % (36-48); HEMOGLOBIN 10.9 g/dL (12.0-16.0); LYMPHOCYTES % (AUTO) 24.1 % (20.5-51.1); MEAN CORPUSCULAR HEMOGLOBIN 30 pg (27-31); MEAN CORPUSCULAR HGB CONC 33 g/dL (33-37); MEAN CORPUSCULAR VOLUME 90.3 fL (80-94); MONOCYTES # (AUTO) 0.4 K/uL (0.8-1.0); MONOCYTES % (AUTO) 5.4 % (1.7-9.3); NEUTROPHILS # (AUTO) 5.1 K/uL (1.8-7.7); NEUTROPHILS % (AUTO) 62.7 % (42.2-75.2); PLATELET COUNT (AUTO) 284 K/uL (140-450); RED BLOOD CELL COUNT(AUTO) 3.62 MIL/uL (4.20-5.40); RED CELL DISTRIBUTION WIDTH 13.2 % (11.6-13.7); WHITE BLOOD COUNT (AUTO) 8.1 K/uL (4.8-10.8)
[2022-01-02 22:14] LABS: ALBUMIN 3.8 g/dL (3.4-5.0); ANION GAP 12.1 (8-16); CARBON DIOXIDE 25.8 mmol/L (21-32); CREATININE 1.1 mg/dL (0.6-1.3); POTASSIUM 3.9 mmol/L (3.5-5.1); TOTAL BILIRUBIN 0.1 mg/dL (0.0-1.0)
[2022-01-02 22:19] LABS: PROTHROMBIN TIME 9.8 secs (10.8-13.4)
[2022-01-02] MEDS: DICYCLOMINE HCL LIQUID 20 MG, ALUMINUM HYD/MAG/SIMETHICONE 30 ML, LIDOCAINE VISCOUS 2% ... PO ONE ×3 (22:20)
[2022-01-02 22:22] VITALS: BP 128/92
--- NOTE | 2022-01-02 22:26 | NUR ---
Dr. Hilario examining patient.
[2022-01-02] MEDS ORDERED: DICYCLOMINE HCL LIQUID 10 MG/5 ML UDC ONE (22:47)
[2022-01-02] MEDS ORDERED: ALUMINUM HYD/MAG/SIMETHICONE 30 ML UDC ONE (22:47)
--- NOTE | 2022-01-02 23:21 | NUR ---
PT REFUSED MED . PT SIAD SHE COULD TAKE MEDS AT HOME
--- NOTE | 2022-01-02 23:39 | NUR ---
PT ELOPED AT 9117
== END 2022-01-02 23:39 | disposition left against medical advice (07) ==
LOC: MED 20:40
DX: K62.5 Hemorrhage of anus and rectum (principal); I10 Essential (primary) hypertension; Z79.899 Other long term (current) drug therapy; Z79.82 Long term (current) use of aspirin
CPT/HCPCS: 36415; 80053; 83690; 85025; 85610; 86886; 86900; 86901; 93005; 99284

== ENCOUNTER 2022-04-11 14:37 | Inpatient (IN) | payer MEDICAID ==
[~2022-04-11] VITALS: Ht 165.1 cm; Wt 78.0 kg
[~2022-04-11 14:37] MED LIST changes: +OMEP-303 PO; -OMEP20TC10 PO
--- NOTE | 2022-04-11 14:37 | NUR ---
LIZBETH BARBOSA VIA GURNEY TO BED 03.
[2022-04-11 14:54] VITALS: BP 147/101
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
[2022-04-11] MEDS ORDERED: ASPIRIN 81 MG TAB.CHEW PO ONE ×3 (15:25→16:55)
--- NOTE | 2022-04-11 15:25 | NUR ---
pt having new onset of chest pain raidates to hands starting from neck. md butts made aware
--- NOTE | 2022-04-11 15:33 | NUR ---
Blood for labwork drawn from phleb Patient tolerated well.
[2022-04-11] MEDS ORDERED: lisinopriL 20 MG TAB PO ONE (15:40)
[2022-04-11] MEDS ORDERED: carvediloL 6.25 MG TAB PO ONE (15:40)
[2022-04-11] MEDS ORDERED: GABAPENTIN 300 MG CAP PO ONE (15:40)
[2022-04-11 15:52] LABS: BASOPHILS # (AUTO) 0.1 K/uL (0.00-0.22); EOSINOPHILS # (AUTO) 0.1 K/uL (0-0.4); EOSINOPHILS % (AUTO) 1.7 % (0.0-4.0); HEMATOCRIT 34.5 % (36-48); HEMOGLOBIN 11.3 g/dL (12.0-16.0); MEAN CORPUSCULAR HEMOGLOBIN 29 pg (27-31); MEAN CORPUSCULAR HGB CONC 33 g/dL (33-37); MEAN CORPUSCULAR VOLUME 88.3 fL (80-94); MONOCYTES # (AUTO) 0.5 K/uL (0.8-1.0); NEUTROPHILS # (AUTO) 4.4 K/uL (1.8-7.7); NEUTROPHILS % (AUTO) 62.3 % (42.2-75.2); PLATELET COUNT (AUTO) 322 K/uL (140-450); RED BLOOD CELL COUNT(AUTO) 3.91 MIL/uL (4.20-5.40); RED CELL DISTRIBUTION WIDTH 13.4 % (11.6-13.7); WHITE BLOOD COUNT (AUTO) 7.1 K/uL (4.8-10.8)
[2022-04-11 16:24] LABS: ANION GAP 13.5 (8-16); ASPARTATE AMINOTRANSFERASE 22 U/L (15-37); CARBON DIOXIDE 27.2 mmol/L (21-32); CHLORIDE 107 mmol/L (98-107); CREATININE 1.3 mg/dL (0.6-1.3); GFR ARICAN-AMERICAN 53 mL/min (>90); GLUCOSE 85 mg/dL (74-106); MAGNESIUM 2.2 mg/dL (1.8-2.4); POTASSIUM 3.7 mmol/L (3.5-5.1); SODIUM SERUM 144 mmol/L (136-145); TOTAL BILIRUBIN 0.3 mg/dL (0.0-1.0); UREA NITROGEN, BLOOD 27 mg/dL (7-18)
--- NOTE | 2022-04-11 16:30 | NUR ---
[place] contacted, spoke with vaishali from dispatch, states she will send an officer to be following up with pt today
[2022-04-11] MEDS ORDERED: ASPIRIN 81 MG TAB.CHEW ONE (16:46)
--- NOTE | 2022-04-11 17:19 | NUR ---
nicci swabbed and sent to lab
[2022-04-11] MEDS ORDERED: KETOROLAC 15 MG/ML VIAL IVP ONE (17:40)
[2022-04-11] MEDS ORDERED: GABA100C PO (18:07)
[2022-04-11] MEDS ORDERED: LORA10TA19 PO (18:07)
[2022-04-11] MEDS ORDERED: IBUP-1842 PO (18:07)
[2022-04-11] MEDS ORDERED: DIPH25TA41 PO (18:07)
--- NOTE | 2022-04-11 19:15 | NUR ---
REPORT RECIEVED FROM ISMAEL LEVINE
--- NOTE | 2022-04-11 20:19 | NUR ---
[place] [employer] AT BEDSIDE
--- NOTE | 2022-04-11 20:28 | NUR ---
[place]ony hill in ED - 04/11/22 at 2054 by [place] [facility] AT BEDSIDE
--- NOTE | 2022-04-11 21:10 | NUR ---
PATIENT ON MONITOR . RESP EVEN AND UNLABORED. SPEAKING ON PHONE
--- NOTE | 2022-04-11 22:12 | NUR ---
SON AT BEDSIDE
[2022-04-11 22:14] VITALS: BP 138/78
--- NOTE | 2022-04-11 23:46 | NUR ---
CALL OUT TO DR CHAPMAN FOR PAIN MEDICATION
[2022-04-11] MEDS ORDERED: ACETAMINOPHEN 325 MG TAB PO PRN (23:50)
[2022-04-11] MEDS ORDERED: SODIUM PHOS / POTASSIUM PHOS 1 PKT PDR PO PRN (23:50)
[2022-04-11] MEDS ORDERED: NACL 0.9% 1,000 ML IV SCH (23:50)
[2022-04-11] MEDS ORDERED: ONDANSETRON 4 MG/2 ML VIAL IM/IVP PRN (23:50)
[2022-04-11] MEDS ORDERED: HYDROcodone/APAP 5/325 MG 1 TAB TAB PO PRN (23:50)
[2022-04-11] MEDS ORDERED: DOCUSATE SODIUM 100 MG GELCAP PO PRN (23:50)
[2022-04-11] MEDS ORDERED: MORPHINE SULFATE 2 MG/ML SYR IVP PRN (23:50)
[2022-04-11] MEDS ORDERED: POTASSIUM CHLORIDE 10 MEQ TABER PO PRN (23:50)
[2022-04-11] MEDS ORDERED: MAGNESIUM OXIDE 400 MG TAB PO PRN (23:50)
[2022-04-11] MEDS ORDERED: diphenhydrAMINE 50 MG/ML VIAL IVP PRN (23:55)
[2022-04-11] MEDS ORDERED: LORazepam 2 MG/ML VIAL IVP ONE (23:55)
--- NOTE | 2022-04-12 00:02 | NUR ---
PT LEFT ER DEPARTMENT
--- NOTE | 2022-04-12 00:03 | NUR ---
PATIENT IS REFUSING TO STAY , YELLING AND UPSET . MEDICATION WAS ORDERED PER ER MD, PT REFUSING MEDICATION AND WANTS TO AMA. PT REFUSING TO SIGN AMA FORM. IV CATH DC. PT LEFT OUT OF EMERGENCY ROOM EXIT. Addendum: 04/12/22 at 0143 by [facility] PATIENT IS REFUSING TO STAY , YELLING AND UPSET . MEDICATION WAS ORDERED PER ER MD, PT REFUSING MEDICATION AND WANTS TO AMA. PT REFUSING TO SIGN AMA FORM. IV CATH DC. PT IS A&OX4 AND GAIT IS STEADY. PT LEFT OUT OF EMERGENCY ROOM EXIT.
--- NOTE | 2022-04-12 00:13 | NUR ---
Note liz in EDM - 04/12/22 at 0042 by MAY PATIENT IS REFUSING TO STAY , YELLING AND UPSET . MEDICATION WAS ORDERED PER ER MD, PT REFUSING MEDICATION AND WANTS TO AMA. PT REFUSING TO SIGN AMA FORM. IV CATH DC. PT LEFT OUT OF EMERGENCY ROOM EXIT.
--- NOTE | 2022-04-12 00:16 | NUR ---
PATIENT ELOPED FROM FACILITY. DISCHARGE INSTRUCTIONS NOT GIVEN TO PATIENT. NOTIFIED.
[2022-04-12] MEDS ORDERED: carvediloL 3.125 MG TAB PO SCH (09:00)
[2022-04-12] MEDS ORDERED: GABAPENTIN 300 MG CAP PO SCH (09:00)
[2022-04-12] MEDS ORDERED: hydroCHLOROthiazide 25 MG TAB PO SCH (09:00)
[2022-04-12] MEDS ORDERED: LORATADINE 10 MG TAB PO SCH (09:00)
[2022-04-12] MEDS ORDERED: PANTOPRAZOLE 40 MG TABEC PO SCH (09:00)
[2022-04-12] MEDS ORDERED: ECOTRIN 81 MG TABEC PO SCH (09:00)
[2022-04-12] MEDS ORDERED: lisinopriL 20 MG TAB PO SCH (09:00)
== END 2022-04-12 00:16 | disposition left against medical advice (07) | DRG 198 ==
LOC: MED 14:37 → MTU 17:40
PROVIDERS: ADMIT Hospitalist; ATTEND Hospitalist
DX: R07.9 Chest pain, unspecified (principal); I25.2 Old myocardial infarction; I69.354 Hemiplegia and hemiparesis following cerebral infarction affecting left non-dominant side; I10 Essential (primary) hypertension; E78.5 Hyperlipidemia, unspecified; Z20.822 Contact with and (suspected) exposure to COVID-19; G62.9 Polyneuropathy, unspecified; Z53.29 Procedure and treatment not carried out because of patient's decision for other reasons; Z91.013 Allergy to seafood; Z88.8 Allergy status to other drugs, medicaments and biological substances; Z91.09 Other allergy status, other than to drugs and biological substances; Z79.899 Other long term (current) drug therapy
CPT/HCPCS: 36415; 71045; 80053; 83735; 84100; 84484; 85025; 93005; 96374; 99285; J1885; J2060; Q0092

== ENCOUNTER 2022-04-29 23:37 | Emergency (ER) | payer MEDICAID ==
[~2022-04-29] VITALS: Ht 165.1 cm; Wt 79.4 kg
[~2022-04-29 23:37] MED LIST changes: +DIPH25TA41 PO; +GABA100C PO; +IBUP-1842 PO; +LORA10TA19 PO
[2022-04-30] MEDS ORDERED: LORazepam 2 MG/ML VIAL IM ONE (00:05)
[2022-04-30 00:13] VITALS: BP 132/94
--- NOTE | 2022-04-30 00:22 | NUR ---
PT AMBULATED TO BED 6
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
[2022-04-30 01:22] VITALS: BP 135/80
--- NOTE | 2022-04-30 01:22 | NUR ---
Patient discharged with v/s stable. Written and verbal after care instructions given and explained by MD SANCHEZ. Patient verbalized understanding. Ambulatory with steady gait. Advised to follow up with PMD.
--- NOTE | 2022-04-30 01:22 | NUR ---
MD SANCHEZ AT BEDSIDE
--- NOTE | 2022-04-30 01:23 | NUR ---
Chart checked and completed.
== END 2022-04-30 01:22 | disposition home or self-care (01) ==
LOC: MED 23:37
DX: R06.4 Hyperventilation (principal); F41.0 Panic disorder [episodic paroxysmal anxiety]; I25.2 Old myocardial infarction; Z86.73 Personal history of transient ischemic attack (TIA), and cerebral infarction without residual deficits; Z91.013 Allergy to seafood; Z91.018 Allergy to other foods; Z91.09 Other allergy status, other than to drugs and biological substances
CPT/HCPCS: 96372; 99283; J2060

== ENCOUNTER 2023-01-10 15:12 | Emergency (ER) | payer MEDICAID, OTHER ==
--- NOTE | 2023-01-10 15:19 | NUR ---
Called from lobby, no answer.
--- NOTE | 2023-01-10 15:36 | NUR ---
2nd call from lobby. No answer
--- NOTE | 2023-01-10 15:39 | NUR ---
PATIENT LEFT WITHOUT BEING SEEN BY DR. Shields. NO FURTHER CARE PROVIDED FOR PATIENT.
--- NOTE | 2023-01-10 15:39 | NUR ---
lab called pt, no answer
== END 2023-01-10 15:39 | disposition left against medical advice (07) ==
LOC: MED 15:12
DX: M79.10 Myalgia, unspecified site (principal); Z53.21 Procedure and treatment not carried out due to patient leaving prior to being seen by health care provider

== ENCOUNTER 2024-01-16 09:26 | Emergency (ER) | payer OTHER ==
[~2024-01-16] VITALS: Ht 165.1 cm; Wt 68.9 kg
[2024-01-16 09:41] VITALS: BP 135/80; PULSE 89; RESP 22; TEMP 97.4; O2SAT 100
[2024-01-16] MEDS ORDERED: LORA-476 PO (10:22)
[2024-01-16] MEDS: LORazepam 2 MG/ML VIAL IM ONE (10:35)
== END 2024-01-16 11:12 | disposition home or self-care (01) ==
LOC: MED 09:26
DX: F41.9 Anxiety disorder, unspecified (principal); F20.9 Schizophrenia, unspecified; I25.2 Old myocardial infarction; I10 Essential (primary) hypertension; Z86.73 Personal history of transient ischemic attack (TIA), and cerebral infarction without residual deficits; F17.200 Nicotine dependence, unspecified, uncomplicated; Z98.890 Other specified postprocedural states; Z79.899 Other long term (current) drug therapy; Z79.82 Long term (current) use of aspirin
CPT/HCPCS: 96372; 99283; J2060